=== PATIENT | female | born 1985 | race Caucasian/White ===

== ENCOUNTER 2018-11-13 14:55 | Emergency (ER) | payer SELFPAY ==
[~2018-11-13] VITALS: Ht 157.5 cm; Wt 55.3 kg
--- NOTE | 2018-11-13 15:50 | NUR ---
Patient discharged to home in stable conditon. Written and verbal after care instructions given. Patient verbalizes understanding of instructions.pt walks in steady gait. no sign of distress.
== END 2018-11-13 15:51 | disposition home or self-care (01) ==
LOC: ER 14:57
DX: R07.89 Other chest pain (principal)
CPT/HCPCS: 71046; A4663

== ENCOUNTER 2020-05-26 21:11 | Emergency (ER) | payer MEDICAID ==
[~2020-05-26] VITALS: Ht 157.5 cm; Wt 60.3 kg
[2020-05-26 22:06] VITALS: BP 135/75
== END 2020-05-26 22:08 | disposition home or self-care (01) ==
LOC: ER 21:11
DX: H66.92 Otitis media, unspecified, left ear (principal); L01.00 Impetigo, unspecified
CPT/HCPCS: 71045; A4663

== ENCOUNTER 2021-03-30 17:52 | Emergency (ER) | payer MEDICAID, OTHER ==
[~2021-03-30] VITALS: Ht 157.5 cm; Wt 59.0 kg
[2021-03-30 18:41] LABS: *BILIRUBIN,URIN NEGATIVE (NEGATIVE); *BLOOD, URINE NEGATIVE (NEGATIVE); *CLARITY,URINE CLEAR (CLEAR); *COLOR,URINE YELLOW (YELLOW); *KETONES,URINE TRACE (NEGATIVE); *UROBILINOGEN,URINE 0.2 E.U./dl (NORMAL); LEUKOCYTE ESTERASE ,URINE 1+ (NEGATIVE); NITRITE, URINE NEGATIVE (NEGATIVE); PH,URINE 5.5 (5.0-8.0); UGLUCOSE NEGATIVE (NEGATIVE)
[2021-03-30 18:45] LABS: *URINE HCG, QUAL NEGATIVE (NEGATIVE)
[2021-03-30] MEDS ORDERED: NITR-104 PO (19:25)
[2021-03-30] MEDS ORDERED: ONDA4TAB11 PO (19:25)
[2021-03-30] MEDS ORDERED: HYDR-3980 PO (19:25)
[2021-03-30 19:33] VITALS: BP 120/78
[2021-03-30 19:57] LABS: BACTERIA,URINE FEW /HPF (NONE SEEN); RBC,URINE 0-3 /HPF (0-3); SQUAMOUS EPITHELIAL CELL,UR FEW /HPF (NONE SEEN)
== END 2021-03-30 19:35 | disposition home or self-care (01) ==
LOC: ER 17:52
DX: N39.0 Urinary tract infection, site not specified (principal); R51.9 Headache, unspecified
CPT/HCPCS: 70450; 84703; 87086; A4663

== ENCOUNTER 2022-11-06 13:00 | Emergency (ER) | payer OTHER ==
[~2022-11-06] VITALS: Ht 157.5 cm; Wt 59.0 kg
[~2022-11-06 13:00] MED LIST: HYDR-3980 PO; NITR-104 PO; ONDA4TAB11 PO
[2022-11-06] MEDS ORDERED: METOCLOPRAMIDE HCL 10 MG/2 ML VIAL ONE (14:29)
[2022-11-06] MEDS ORDERED: METOCLOPRAMIDE HCL 10 MG/2 ML VIAL IV ONE (14:30)
[2022-11-06] MEDS ORDERED: IV NORMAL SALINE 1000 ML BAG IV ONE (14:30)
[2022-11-06 14:49] LABS: HEMATOCRIT 40.9 % (31.2-41.9); MEAN CORPUSCULAR HEMOGLOBIN 30.1 uug (24.7-32.8); MEAN CORPUSCULAR VOLUME 88.8 fL (75.5-95.3); PLATELET COUNT (AUTO) 218 K/uL (179-408)
[2022-11-06 15:01] LABS: *BILIRUBIN,URIN NEGATIVE (NEGATIVE); *BLOOD, URINE 3+ (NEGATIVE); *CLARITY,URINE CLEAR (CLEAR); *COLOR,URINE Brown (YELLOW); *KETONES,URINE NEGATIVE (NEGATIVE); *UROBILINOGEN,URINE 0.2 E.U./dl (NORMAL); LEUKOCYTE ESTERASE ,URINE TRACE (NEGATIVE); NITRITE, URINE NEGATIVE (NEGATIVE); PH,URINE 5.5 (5.0-8.0); UGLUCOSE NEGATIVE (NEGATIVE)
[2022-11-06 15:02] LABS: BILIRUBIN,DIRECT 0.1 mg/dL (0.0-0.2); BILIRUBIN,TOTAL 0.3 mg/dL (0.2-1.0); CREATININE 0.7 mg/dL (0.6-1.3); POTASSIUM 3.9 mmol/L (3.5-5.1); TOTAL PROTEIN, SERUM 7.6 g/dL (6.4-8.2)
[2022-11-06 15:02] LABS: *URINE HCG, QUAL NEG (NEGATIVE)
[2022-11-06 15:30] LABS: BACTERIA,URINE FEW /HPF (NONE SEEN); RBC,URINE TNTC /HPF (0-3)
[2022-11-06 15:31] LABS: SQUAMOUS EPITHELIAL CELL,UR MANY /HPF (NONE SEEN)
[2022-11-06] MEDS ORDERED: NITR100C11 PO (15:34)
--- NOTE | 2022-11-06 16:07 | NUR ---
IV removed. Catheter intact and site benign. Pressure and 4x4 gauze applied to site. No bleeding noted.
--- NOTE | 2022-11-06 16:07 | NUR ---
Patient discharged to home in stable condition. Written and verbal after care instructions given. Patient verbalizes understanding of instructions. Stressed follow up or return to ER for worsening s/s.
[2022-11-08] MEDS ORDERED: MECL-159 PO (15:43)
== END 2022-11-06 16:08 | disposition home or self-care (01) ==
LOC: ER 13:00
DX: N39.0 Urinary tract infection, site not specified (principal)
CPT/HCPCS: 99284; 96374; 96361; 80076; 80048; 81001; 84703; 85025; 36415; 93005; J2765; J7040; A4663

== ENCOUNTER 2022-11-08 13:45 | Emergency (ER) | END 2022-11-08 16:16 | disposition home or self-care (01) | DX: R42 Dizziness and giddiness (principal); R94.31 Abnormal electrocardiogram [ECG] [EKG] | CPT/HCPCS: 99285; 70496; 93005; 70498; Q9967; J7040 ==